=== PATIENT | female | born 1975 | race Caucasian/White ===

== ENCOUNTER 2016-11-02 01:18 | Emergency (ER) | payer OTHER ==
--- NOTE | ~2016-11-02 | CT4 ---
[facility] A Service of [facility] RADIOLOGY TEXT RESULTS PATIENT: WARD ROACH LOCATION: [facility] : 73 UNIT #: [id number] AGE: [address]: Ana Wharton MD SEX: F ORDER DR: [id number] [facility] [address] [place], [place] [address] [id number] E MR#: [id number] Acc #: [id number] NAME: WARD ROACH. : 1975 SEX: F STUDY DATE/TIME: 11/02/2016 3:35 UNIT: [facility] ROOM: STUDY DESCRIPTION: CT Abd and Pelv Wo Cont Attending Physician: Ana Wharton M.D. Ordering Physician: Ana Wharton M.D. Primary Care Physician: Georgie Fuller M.D. MEDICAL IMAGING REPORT This report is preliminary unless electronic signature is present EXAM CT abdomen and pelvis, noncontrast, kidney stone protocol, 11/02/2016 HISTORY 41-year-old female in the ED complaining of new onset left flank pain beginning last night. She reports a past history of kidney stones. TECHNIQUE CT examination of the abdomen and pelvis without oral or IV contrast using kidney stone protocol. This CT exam was performed with one or more of the following radiation dose reduction techniques: automatic exposure control, adjustment of mA and/or kV according to patient size, and iterative reconstruction. FINDINGS ABDOMEN FINDINGS: There is a tiny obstructing calculus in the left upper ureter just below the UPJ measuring 1-2 mm in size. This causes mild left hydronephrosis. 1 mm nonobstructing calculus in the lower pole right kidney. Kidneys, ureters and bladder otherwise negative. Liver, pancreas and spleen are within normal limits. Nondistended gallbladder. No bile duct dilatation. Small bowel and colon are normal in caliber and appearance, as imaged. The appendix is normal. PELVIS FINDIGNS: The uterus, ovaries, bladder and rectum are within normal limits. Tiny amount of physiologic free pelvic fluid. IMPRESSION 1. Tiny obstructing calculus in the left upper ureter just below the UPJ [facility] A Service of [facility] RADIOLOGY TEXT RESULTS PATIENT: WARD ROACH [id number] 73 UNIT #: [id number] AGE: [address]: Ana Wharton MD SEX: F ORDER DR: measuring 1-2 mm in size. This causes mild left hydronephrosis. 2. A 1 mm nonobstructing right lower pole renal calculus. 3. The remainder of the examination is negative. Normal appendix. Dictated by... Tawanda Gaspar M.D. THIS IS AN ELECTRONICALLY VERIFIED REPORT Tawanda Gaspar M.D. at 11/02/2016 6:06 AM MALLY/niki TD: 11/02/2016 04:39 JOB #: [id number] MEDICAL IMAGING REPORT Page 1 of 1 COPY
[~2016-11-02 01:18] MED LIST: ACETAMINOPHEN PO; BACTRIM DS TABL1 TA1; CIPRO PO; CRESTOR PO; DICLOFENAC PO; FLEXERIL10 MG PO; HYDROCODON-ACE1 EAC5 PO; LEVAQUIN750 MG PO; LEVOTHROID175 MCG PO; LORTAB 10-5001 EACH PO; LORTAB 5/500 TA1 TA1 PO; LORTAB 7.5-5001 TAB PO; MOBIC15 MG PO; NAPROXEN PO; NEURONTIN300 MG PO; NORCO1 TAB 10/3 PO; OMEPRAZOLE40 M1 PO; PERCOCET10 PO; PHENERGAN25 MG PO; PREVACID; PREVACID PO; PREVACID15 MG PO; PRILOSEC PO; PRILOSEC20 M1 PO; SENNA S TABLET1 TAB PO; STOMACH MED; SYNTHROID PO; SYNTHROID0.15 MG PO; TOPAMAX PO; TOPAMAX50 MG PO; VOLTAREN50 MG PO
[2016-11-02 02:27] LABS: BASOPHIL# 0.1 X10e3 (0-0.3); BASOPHIL% 0.7 % (0-2.5); EOSINOPHIL# 0.5 X10e3 (0-0.7); EOSINOPHIL% 4.1 % (0.0-7.0); HEMATOCRIT 38.8 % (35.0-45.0); HEMOGLOBIN 12.8 gm/dL (12.0-16.0); LYMPHOCYTE# 1.9 X10e3 (1.0-3.5); LYMPHOCYTE% 16.2 % (17.0-45.0); MEAN CELL VOLUME 98.5 FL (83-96); MEAN CORPUSCULAR HEMOGLOBIN 32.6 PG (28-34); MEAN CORPUSCULAR HGB CONC 33.1 g/dL (30-36); MONOCYTE# 0.7 X10e3 (0-1.0); MONOCYTE% 6.1 % (3.0-12.0); NEUTROPHIL# 8.4 X10e3 (1.5-7.1); NEUTROPHIL% 72.9 % (40-75); PLATELET COUNT 237 X10e3 (140-420); RED BLOOD COUNT 3.94 X10e (3.90-5.30); RED CELL DISTRIBUTION WIDTH 12.4 % (11.0-15.5); WHITE BLOOD COUNT 11.6 X10e3 (4.0-10.5)
[2016-11-02 02:31] LABS: DIFF IND NO
[2016-11-02 02:43] LABS: URINE SOURCE CLEAN CATCH
[2016-11-02 02:46] LABS: URINE APPEARANCE CLEAR; URINE BILIRUBIN NEG (NEG); URINE BLOOD 3+ (NEG); URINE COLOR YELLOW; URINE GLUCOSE NEG (NEG); URINE KETONE NEG (NEG); URINE LEUKOCYTE ESTERASE TRACE (NEG); URINE NITRATE NEG (NEG); URINE PH 6.5 (5-8); URINE PROTEIN NEG (NEG); URINE SPECIFIC GRAVITY 1.013 (1.003-1.035)
[2016-11-02 02:48] LABS: ALBUMIN SERUM 3.8 g/dL (3.5-5.0); ALKALINE PHOSPHATASE 57 U/L (32-92); ALT (SGPT) 10 U/L (10-40); AST (SGOT) 16 U/L (10-42); BILIRUBIN,TOTAL 0.7 mg/dL (0.2-2.0); BLOOD UREA NITROGEN 7 mg/dL (9-23); BUN/CREATININE RATIO 8.75; CALCIUM SERUM 8.9 mg/dL (8.4-10.2); CARBON DIOXIDE 24 mmol/L (22-31); CHLORIDE 106 mmol/L (100-111); CREATININE SERUM 0.8 mg/dL (0.6-1.4); GLUCOSE FASTING 112 mg/dL (70-110); POTASSIUM 3.9 mmol/L (3.5-5.1); PROTEIN TOTAL SERUM 6.9 g/dL (6.0-8.3); SODIUM 136 mmol/L (135-145)
[2016-11-02 02:49] LABS: URBCS1 AUWI INNUM /[HPF] (0-2); URINE BACTERIA AUWI NEG (NEGATIVE); URINE SQUAMOUS EPITHELIAL CELL NONE SEEN /[HPF]
[2016-11-02 02:50] LABS: BILIRUBIN, DIRECT <0.1 mg/dL (0.0-0.2); BILIRUBIN,INDIRECT 0.6 mg/dL (0.0-0.9)
[2016-11-02 02:54] LABS: CULTURE INDICATED? NO
== END 2016-11-02 05:15 | disposition home or self-care (01) ==
LOC: CED 01:18
PROVIDERS: Emergency Medicine
DX: N20.1 Calculus of ureter (principal); K21.9 Gastro-esophageal reflux disease without esophagitis; F17.210 Nicotine dependence, cigarettes, uncomplicated
CPT/HCPCS: 74176; 80048; 80076; 81003; 84703; 85025; 96361; 96374; 96376; 99284; J1170